=== PATIENT | female | born 1960 | race Caucasian/White ===

== ENCOUNTER 2024-06-20 15:47 | Outpatient (CLI) | payer BC, SELFPAY ==
--- NOTE | 2024-06-20 14:05 | DI.RAD_ITS ---
Exam(s) XR KNEE LT 1V XR STANDING ALIGNMENT EXAM: XR STANDING ALIGNMENT and XR knee LT 1 V CLINICAL HISTORY: LEFT KNEE PAIN. TECHNIQUE: 2D digital imaging was performed. Five images were obtained. COMPARISON: CR XR KNEE 4 VIEW LEFT from 06/03/2023 CR XR KNEE 4 VIEW LEFT from 03/09/2024 FINDINGS: BONES: The hips are well maintained. In the right knee, there is mild narrowing of the medial femora l tibial joint space. In the left knee there is marked narrowing of the medial femoral tibial joint. There is an enthesophyte at the anterior patella. There is a small joint effusion. The ankles are well maintained.There is no significant leg length discrepancy. SOFT TISSUE: Normal. IMPRESSION: Degenerative changes seen in the knees bilaterally, left greater than right. DATA REPOSITORY: RADIATION DOSE DELIVERED:
== END 2024-06-20 15:48 | disposition home or self-care (01) ==
LOC: DIORS 15:47
PROVIDERS: Visit Provider Student in an Organized Health Care Education/Training Program
DX: M17.12 Unilateral primary osteoarthritis, left knee
CPT/HCPCS: 73560; 77073

== ENCOUNTER 2024-08-05 09:42 | Day surgery (SDC) | payer BC, SELFPAY ==
[2024-08-05] VITALS (20 sets, daily range): BP systolic 138–164; BP diastolic 60–99; PULSE 74–88; RESP 11–20; TEMP 35.9–36.6; O2SAT 92–99; BMI 36.9
--- NOTE | 2024-08-05 09:50 | W.PM.DSUDISC ---
Date of service: 08/05/24 Discharge Plan Disposition Patient Disposition: Home Condition: Good Discharge Details Reason For Visit: Left knee DJD Attending Provider: Ricki Goodman Primary Care Provider: None,None Home Meds and New Rx's Prescriptions: New celecoxib [Celebrex] 200 mg capsule 200 mg PO BID PRNQty: 60 0RF Rx Instructions: Take one tablet twice daily for pain and inflammation aspirin 81 mg tablet,delayed release (DR/EC) 81 mg PO BID 30 Days Qty: 60 0RF acetaminophen 500 mg tablet 1,000 mg PO Q8H PRN Qty: 90 0RF Rx Instructions: Take two tablets up to every 8 hours as needed for pain dexamethasone 4 mg tablet 4 mg PO DAILY Qty: 2 0RF Rx Instructions: Take one tablet once daily for two days docusate sodium [Colace] 100 mg capsule 100 mg PO BID Qty: 30 0RF gabapentin 300 mg capsule 300 mg PO QHS Qty: 14 0RF Rx Instructions: Take one tablet at bedtime oxycodone 5 mg tablet 5 mg PO Q4H PRNQty: 18 0RF Rx Instructions: Take one tablet up to every 4 hours as needed for severe postoperative pain Continued atorvastatin 10 mg tablet 10 mg PO DAILY calcium carbonate 600 mg calcium (1,500 mg) tablet 600 mg PO DAILY haloperidol 2 mg tablet 4 mg PO QHS lorazepam 0.5 mg tablet 0.5 mg PO DAILY PRN losartan 25 mg tablet 25 mg PO DAILY magnesium oxide 400 mg (241.3 mg magnesium) tablet 400 mg PO DAILY metformin 500 mg tablet 500 mg PO BID omeprazole 40 mg capsule,delayed release(DR/EC) 40 mg PO BID sertraline 100 mg tablet 100 mg PO DAILY cholecalciferol (vitamin D3) 50 mcg (2,000 unit) capsule 50 mcg PO DAILY diclofenac sodium [Voltaren Arthritis Pain] 1 % gel 2 g topical QID Rx Instructions: apply to single elbow, wrist or hand; for hand includes palm/fingers/back of hand Pain Relieving(cam-m.lew-ment) Adhesive Patch,Medicated 1 patch topical PRN Discontinued acetaminophen [Tylenol] 325 mg tablet 325 mg PO Q4H PRN Discharge Instructions Additional Instructions: Total Knee Discharge Instructions Activity: The most important activity is to walk and to work on gentle motion (both flexion and extension). You should try to take short walks a few times a day. It is important that when resting you work on keeping the knee straight. Avoid putting a pillow behind the knee as this will encourage flexion. Work on range of motion exercises as provided by Physical Therapy. - Start outpatient physical therapy within 2 weeks. - You should wear the MAVERICK hose on both legs for 2 weeks. You may remove these at night. You may also use any compression sock in place of the MAVERICK hose. - Utilize [employer] to review exercises, see videos on exercises and obtain basic information pertaining to your surgery and your recovery. Dressing: Remove the Horace wrap by 2 days after your surgery and put on the MAVERICK stocking given to you from the hospital. Keep the surgical dressing (underneath the HORACE wrap) in place for at least one week. After the first week it may be removed and replaced with light gauze and tape or nothing. The wound and dressing may get wet after 3 days but avoid soaking the dressing or otherwise it will need to be changed. Many people prefer covering the dressing with cling wrap (saran wrap) to minimize it from getting soaked. If it gets wet, just pat dry. If it starts to peel off then it will need to be changed. Medications: - You should take Tylenol and anti-inflammatory Celebrex as your primary pain control medications. If the Celebrex is too expensive or not covered, please call the office for another alternative (Advil/Ibuprofen or Naproxen/Aleve) - You have been prescribed a stronger pain medication Oxycodone for breakthrough pain, take as needed as prescribed. - You take a stomach acid reduction agent Omeprazole to help reduce stomach acid and reflux. - You have been prescribed Gabapentin to take at night for restlessness and nerve pain. - You will be taking Aspirin 81mg twice a day for DVT prevention unless instructed otherwise. - You have also been prescribed Decadron to take to control post-operative nausea and pain. You will start this tomorrow. - If you have constipation you should take Colace (which has been prescribed) or Miralax (which is available [id number]). It takes most people 3-4 days to have a bowel movement. Follow-up: 2 weeks If you have any acute concerns or questions, please do not hesitate to contact the office at [phone]. You may contact Dr. Goodman with any questions after hours through the hospital at [phone] or on his cell phone at [phone]. Stand Alone Forms: Anesthesia Discharge Inst., Navid.Nerve Block Instructions, Melody Adam ([facility]) Referrals: Ricki Goodman MD [ [facility] STAFF PHYSICIAN] - 08/18/24 1:15 pm Equipment/Supplies: Walker Activity:: Elevate Remove Dressings/Wound Care:: Do Not Remove Shower/Bathe:: Cover Diet:: As Tolerated Discharge Orders Discharge Orders: Discharge Order (Routine); Ordered 08/05/24 Ordered By: Brittaney Mcneill
[2024-08-05] MEDS: Celecoxib 200 MG CAP 400 MG PO (11:01)
[2024-08-05] MEDS: Gabapentin 300 MG CAP PO (11:01)
[2024-08-05] MEDS: Acetaminophen 500 MG TAB 1000 MG PO (11:01)
[2024-08-05] MEDS: Lactated Ringers 1,000 ML 80 ML IV (11:09)
--- NOTE | 2024-08-05 11:20 | ANES.PREOP_ITS ---
General Info Date of Service Date Performed: 08/05/24 Height: 5 ft 3.5 in Weight: 96.1 kg Body Mass Index (BMI): 36.9 Surgical Procedure: Operation Date: 08/05/24 11:25 Proposed Procedure Side Surgeon p Knee Total Arthroplasty, Cementless CR Left Ricki Goodman MD Meds Allergies and Home Medications Allergies Allergy/AdvReac Type Severity Reaction Status Date / Time house dust AdvReac Mild watery eyes Verified 08/05/24 11:00 lisinopril AdvReac Unknown Unknown Verified 08/05/24 10:48 empagliflozin (From AdvReac headaches Verified 08/05/24 10:48 Jardiance) seaonale Allergy Unknown Unknown Uncoded 08/05/24 11:00 cat hair AdvReac watery eyes Uncoded 08/05/24 10:48 Home Medication ?Medication ?Instructions ?Recorded acetaminophen 325 mg tablet 325 mg PO Q4H PRN 04/20/24 (Tylenol) atorvastatin 10 mg tablet 10 mg PO DAILY 04/20/24 calcium carbonate 600 mg PO DAILY 04/20/24 cholecalciferol (vitamin D3) 50 50 mcg PO DAILY 04/20/24 mcg (2,000 unit) capsule diclofenac sodium 1 % topical gel 2 g topical QID 04/20/24 (Voltaren Arthritis Pain) haloperidol 2 mg tablet 4 mg PO QHS 04/20/24 lorazepam 0.5 mg tablet 0.5 mg PO DAILY PRN 04/20/24 losartan 25 mg tablet 25 mg PO DAILY 04/20/24 magnesium oxide 400 mg (241.3 mg 400 mg PO DAILY 04/20/24 magnesium) tablet metformin 500 mg tablet 500 mg PO BID 04/20/24 omeprazole 40 mg capsule,delayed 40 mg PO BID 04/20/24 release sertraline 100 mg tablet 100 mg PO DAILY 04/20/24 camphor-methyl salicylate-menthol 1 patch topical PRN 08/04/24 topical patch (Pain Relieving (camphor-m.salicyl-menth) topical patch) Current Visit Medications: Current Medications Generic Name Dose Route Start Last Admin Trade Name Freq PRN Reason Stop Dose Admin Acetaminophen 1,000 mg 08/05/24 06:00 08/05/24 11:01 Acetaminophen 500 Mg Tab PO 08/05/24 23:59 1,000 mg PREOP KIANA Administration Celecoxib 400 mg 08/05/24 06:00 08/05/24 11:01 Celecoxib 200 Mg Cap PO 08/05/24 23:59 200 mg PREOP KIANA Administration Gabapentin 300 mg 08/05/24 06:00 08/05/24 11:01 Gabapentin 300 Mg Cap PO 08/05/24 23:59 300 mg PREOP KIANA Administration Hydromorphone HCl 0.5 mg 08/05/24 09:52 Hydromorphone 1 Mg/Ml Syr IVP 09/04/24 09:51 Q2H PRN PRN Ringer's Solution 1,000 mls @ 80 mls/hr 08/05/24 06:00 08/05/24 11:09 IV 08/05/24 23:59 80 mls/hr INFUSION KIANA Administration Cefazolin Sodium/Dextrose 2 gm in 50 mls @ 100 mls/hr 08/05/24 06:00 Ancef Duplex IVPB 08/05/24 23:59 PREOP KIANA Tranexamic Acid/Sodium Chloride 1,000 mg in 100 mls @ 600 mls/hr 08/05/24 06:00 IVPB 08/05/24 23:59 PREOP KIANA Cefazolin Sodium/Dextrose 1 gm in 50 mls @ 100 mls/hr 08/05/24 10:00 Ancef Duplex IVPB 08/06/24 02:29 Q8H KIANA IV Miscellaneous Supplies 1 each 08/05/24 06:00 Iv Access IV 08/05/24 23:59 DIRECTED KIANA Oxycodone HCl 0 mg 08/05/24 09:48 Oxycodone 5 Mg Tab PO 09/04/24 09:47 Q3H PRN PRN Pain Sodium Chloride 0 ml 08/05/24 06:00 Normal Saline Flush 10 Ml Syr IV 08/05/24 23:59 PRN PRN Sodium Chloride 0 ml 08/05/24 06:00 Normal Saline 10 Ml Vial IJ 08/05/24 23:59 DIRECTED PRN Sterile Water 0 ml 08/05/24 06:00 Water,Injection,Sterile 10 Ml Vial IJ 08/05/24 23:59 DIRECTED PRN PFSH Active Problems Active Problems: Problem Status Onset Code History of total left knee replacement Acute ~08/05/24 Z96.652 Lung mass Acute R91.8 Osteoarthritis of left knee Acute M17.12 Obesity Chronic E66.9 Type 2 diabetes mellitus Acute E11.9 Mixed stress and urge incontinence Acute N39.46 Irritable bowel syndrome with diarrhea Acute K58.0 GERD (gastroesophageal reflux disease) Chronic K21.9 Functional disorder of intestine Acute K59.9 Incontinence of feces with fecal urgency Acute R15.9, R15.2 Essential hypertension Acute I10 Disorder of lipid metabolism Acute E78.9 Cystocele affecting management of , antepartum Acute O34.80 Chronic schizophrenia Acute F20.9 Biliary calculus Acute K80.20 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 Nothing wrong with my heart they said, but they found 3 spots on my lung. Surgical History Surgical History H/O esophagogastroduodenoscopy History of colonoscopy History of cryosurgery for irregular cells per patient History of breast surgery Mass excision right breast, no cancerous per patient History of cholecystectomy Tobacco Smoking/Tobacco Use Status: Never Alcohol Alcohol Intake: never Substance Use Substance use type: does not use Vital Signs and Lab Results Vital Signs Most Recent Vital Signs in EMR: Most Recent Vital Signs Temp Pulse Resp BP Pulse Ox 36.4 C L 77 16 157/74 H 95 08/05/24 10:44 08/05/24 10:44 08/05/24 10:44 08/05/24 10:44 08/05/24 10:44 Lab Results Blood Type / Crossmatch: No Data to Display Complete Blood Count: 2 No Data to Display Complete Metabolic Panel: No Data to Display Liver Function Panel: No Data to Display Coagulation Panel: No Data to Display Cardiac Panel: No Data to Display Arterial Blood Gas: No Data to Display Venous Blood Gas: No Data to Display Pancreas Panel: No Data to Display Thyroid Panel: No Data to Display Infectious Disease: No Data to Display Blood Cultures: No Data to Display Toxicology Panel: No Data to Display Anesthesia Assessment and Plan Anesthesia History Personal History: No History of Anesthesia Complications Family History: No Family History of Anesthesia Complications Exercise Tolerance Exercise Tolerance: Metabolic Equivalents>4 Pertinent Negatives Pertinent Negatives: No Symptoms of GERD Cardiac & Pulmonary Exam Cardiac Exam: Normal S1/S2 Heart Sounds Pulmonary Exam: Clear Bilateral Breath Sounds Implantable Cardiac Device Does patient have a Pacemaker or an ICD?: No Airway Exam Known Difficult Airway: No Mallampati Class: 2 Mouth Opening: Normal (> 3cm) Thyromental Distance: Greater than 3 cm Neck Range of Motion: Full ROM Neck Circumference: Thick Teeth Condition: Removable Dentures/Plates Upper and Removable Dentures/Plates Lower ASA Classification ASA Score: ASA 3 Emergency Case?: No NPO Status NPO Status: NPO Clears >2 hours, Solids >8 hours Anesthesia Plan Resuscitation Status: Full Code Anesthesia Technique: Spinal Anesthesia Airway Planned: Natural Airway Pain Management: Surgeon and patient request nerve block Monitors Used: Standard Monitors Preoperative Comments:: Chio is an pleasant 64 year old with diagnosed mental health issues. Daughter is with her for clarification and input. Plan is to attempt SAB if patient remains cooperative, otherwise will have GETA.
[2024-08-05] MEDS: ceFAZolin 2 GM/50 ML BAG IVPB (12:01)
[2024-08-05] MEDS: TRANEXAMIC ACID/SOD. CHL. 1,000 MG/100 ML BAG 600 MG IVPB (12:11)
--- NOTE | 2024-08-05 12:21 | W.ANESNERVE ---
Nerve Block Single Injection Procedure Date and Time Date Performed: 08/05/24 Procedure Start: 11:33 Location Where Procedure Performed Procedure Location: Day Surgery Unit Reason Performed: Postoperative Analgesia Requesting Provider: Ricki Goodman Timeout Performed Timeout Performed: Yes Monitoring Used ECG, Blood Pressure, SpO2 and See EMR for corresponding vital signs Sterility Sterility: Hand Hygiene, Surgical Cap, Surgical Mask, Sterile Gloves, Eye Protection and Chlorhexidine Sedation Given During Procedure Sedation Given (Indicate Dose Given): Versed IV Dose:: 3mg IVP Patient Mental Status Patient Mental Status: Sedate with meaningful communication Nerve Block 1st Nerve Block: Laterality: Left Block Type: Adductor Canal Ultrasound Image Saved?: Yes Needle / Catheter Used: 120mm SonoPlex II Local Anesthetic Bolus (Indicate Dose Given): Lidocaine used for local infiltration of skin and Ropivacaine 0.5% Dose:: 25cc/5% (125mcg) Additives (Indicate Dose Given): Epinephrine to make 1:200,000 (5mcg/ml) Dose:: 125mcg and Decadron Dose:: 10mg PF Ultrasound: Sterile probe cover and gel used Nerve Stimulator: Not Used Paresthesia: None Procedure Tolerated: No Complications and Patient tolerated well Procedure Outcome: Successful Performed By: Santino Ojeda
--- NOTE | 2024-08-05 13:44 | ROE_ITS ---
Operative Note Operative Note PRE-OP DIAGNOSIS: Left Knee Osteoarthritis POST-OP DIAGNOSIS: same PROCEDURE: Left Total Knee Replacement SURGEON: Ricki Goodman MAIL CARRIER TECHNICIAN: Graciela Arora ANESTHESIA TYPE: Spinal Refer to Anesthesia Record ESTIMATED BLOOD LOSS: 75 PATHOLOGY: none sent TOURNIQUET TIME: 0 COMPLICATIONS: None Patient was transported to: PACU Patient's condition: stable Implants: 1. Depuy Attune Cementless Cruciate Retaining Femoral Component, Size 5 2. Depuy Attune Cementless Fixed Bearing Tibial Component, Size 4 3. Depuy Attune 5x6mm CR/FB Poly 4. Depuy Attune Patellar Component, Size 35 Indications: I have seen Chio in clinic for symptoms of knee arthritis, confirmed with radiographic findings. She has exhausted nonoperative methods and was having significant limitations in daily function and desired better function and less pain. I discussed the technical details of a knee replacement. I explained the risks of the procedure to include, but not limited to, bleeding, infection, pain, stiffness, fracture, damage to nerves and vessels, damage to muscles and tendons, loosening, need for repeat procedure, blood clot and cardiopulmonary demise. Despite these risks, Chio elected to proceed. Findings: There was notable arthritic change of the medial compartment as well as a focal cartlage defect of the lateral tibia. Procedure Description: Chio was greeted in the preoperative holding area where the correct side was identified and marked. The consent was reviewed with the patient and signed. The history and physical was updated. All questions were answered. Preoperative medications were administered: Acetaminophen 1000mg, Celebrex 400mg, and Gabapentin 300mg. An adductor canal block was then administered by the anesthesia team in the [facility]. Chio was taken back to the operating room. A spinal anesthestic was then administered. The patient was placed into the supine position on the operating room table. Posts were placed for positioning during the procedure. All bony prominences were well padded. Prophylactic antibiotics in the form of Cefazolin were administered. 1g of Tranxemic Acid was given intravenously within 30 minutes of incision. The left leg was then prepped with Chloraprep and draped in a standard fashion with impervious stockinette. A second prep with Chloraprep was performed prior to application of Iodine impregnated skin protection. A timeout to confirm correct identity, side and site, procedure, allergies, anesthesia, and medical concerns was performed. With the knee in some flexion, a midline incision was made overlying the knee. Full thickness skin flaps were raised once the extensor mechanism was encountered. These were raised medially and laterally. Any bleeding was controlled with electrocautery. Once the extensor mechanism was fully exposed, a medial parapatellar arthrotomy was performed in a flexed position. All bleeding from the arthrotomy and the geniculate arteries was coagulated. A medial subperiosteal peel was performed with electrocautery to the midcoronal plane. The fat pad was removed while keeping the patellar tendon protected. The anterior distal femur synovium was removed for later visualization. The ACL and PCL were resected and the anterior horn of the lateral meniscus was transected. The knee was then flexed with the patella everted. Large osteophytes from the tibia were removed. Large osteophytes from the femur were removed. Using a step drill, and based on preoperative templating, the femoral canal was entered. This was done with a step drill without any difficulty. The int ramedullary distal femoral cut guide was inserted, set to a 4 degree valgus cut and 9mm cut thickness. The distal femoral cut guide was then held in position and pinned. With the soft tissues protected, the distal cut was performed. This was passed over a few times to ensure a planar cut. I then turned attention to the tibia. The extramedullary guide was placed onto the leg. The distal aspect was slid medial to adjust for position of center of ankle and stay in line with shaft of the tibia. Approximately 3-5 degrees of posterior slope was kept in the proximal cutting guide. The center of the guide was aligned with the PCL. The stylus was used to assess cut thickness. The medial side, most involved side, was set for a 5mm cut. This was then held in position and pinned into place with 2 additional pins and a cross pin for stability. The medial and lateral collateral ligaments were protected and the cut was performed. With this completed, it was assessed and noted to be of appropriate dimensions. The guide was removed. A spacer block was inserted and the knee was brought into extension. The 6mm spacer block provided full extension, without hyperextension and with stability of both the medial and lateral collateral ligaments was assessed. The pins from the femur and the tibia were then removed. The distal femur was then sized. The anterior stylus was placed onto the lateral ridge of the anterior femur. This indicated a size 5 femur. The external rotation of the guide was adjusted to 3 degrees to match the epicondylar axis, perpendicular to Suyapa?s line. The 4-in-1 cutting guide was the placed. The posterior medial femur cut was evaluated and appeared of good thickness. The spacer block was inserted underneath the cutting guide and stability was confirmed in 90 degrees of flexion. An viv wing was used to confirm appropriate position of the anterior cut to avoid notching. This cutting guide was ensured to be flush on the cut surface and then pinned into place with headed pins. While protecting the soft tissues, quad tendon, and collateral ligaments, the anterior and posterior cuts were performed with a saw. The central two pins were removed and the posterior and anterior chamfers were cut next. The notch-cutting guide was placed. This was pinned to lateralize the femoral component as much as possible while keeping it flush on the cut surface. This was then pinned into position. A reciprocating saw was used to make the notch cut. A rasp smoothed the cut surfaces. The medial and lateral menisci were removed. A trial femoral component was then inserted, impacted down to the cut surfaces, and the lug holes were drilled. A provisional trial tibial component was placed and the knee was brought through range of motion. There was noted to be excellent extension and flexion. There was no significant instability. The patella was tracking without thumbs. A size 6mm polyethylene component provided the best range of motion and stability with less than 2mm gapping with medial and lateral stress and full extension without significant hyperextension. The tibial cut surface was fully exposed. The tibia was then sized as a 4. The tibia had been previously marked during trialing to correspond to the center of the tibial component to help with rotation. The trial was aligned to this joce, approximately rotated to the medial 1/3rd of the tibial tubercle. The trial was pinned into place. The tibia was prepared with a reamer and a keel punch and lug holes. The knee was then brought into extension and the patella was measured as 24mm. Using the patellar clamp and cut guide, this was resected to a flat surface with at least 13mm of thickness remaining. The size 35 patella fit the best. This was oriented and then clamped into position. The lugs were drilled. The trial components were removed. The final components were opened on the back table. The periosteal and capsular tissues, especially posteriorly, around the knee were then systematically injected with a periarticular cocktail consisting of 246mg of Ropivacaine, 0.5mg of Epinephrine, 0.08mg of Clonidine, and 30mg of Ketorolac, diluted to 100cc. On the back table, with the implants opened, the cement was mixed. One batch of high viscosity cement was prepared with vacuum assistance. After the cement was ready a small amount was placed on the cut surface of the patella and the patellar button was clamped into position and held. While the cement was hardening, the cementless knee components were placed. Starting with the tibial component, the tibia was subluxed anteriorly and the lug holes of the component were lined up. The tibia was then impacted with an impactor and mallet until the tibial component was in contact with the tibia. The final polyethylene component was inserted. Then, the femoral component was inserted. The lug holes were aligned and the component was impacted into position. The knee was irrigated with Surgiphor Betadine solution. This was allowed to sit in the knee for 3 minutes and then it was irrigated out with saline. After the cement had finally cured, approximately 15min, the clamp was removed from the patella and the knee was taken through range of motion. The patella was tracking with a no-thumbs technique. The capsule was then reapproximated with a No. 1 Vicryl at multiple locations. The capsule was finally closed with a No. 2 Stratafix, barbed suture. The second dosing of 1g TXA was started. Deep tissues were then reapproximated with 0 Vicryl and 2-0 Vicryl. The skin was closed with a running 3-0 Monocryl in a subcuticular fashion. This was reinforced with skin glue. A Mepilex silver dressing was applied along with a [id number] AMY wrap. A CryoCuff was applied. Chio was transferred to the hospital bed without difficulty an suffering no apparent complication. Chio has a good prognosis. Physical therapy will start today and without restrictions, weight-bearing as tolerated. Aspirin 81mg BID will be used for DVT prophylaxis. Date of Procedure: 08/05/24
--- NOTE | 2024-08-05 14:20 | W.ANESPOSTOP ---
Postoperative Evaluation Date, Time and Location Date Performed: 08/05/24 Time Performed: 14:21 Patient Location: PACU Vital Signs Most Recent Imported Vital Signs: Most Recent Vital Signs Temp Pulse Resp BP Pulse Ox 36.4 C L 74 11 L 139/67 96 08/05/24 14:16 08/05/24 14:16 08/05/24 14:16 08/05/24 14:16 08/05/24 14:16 Pain Score Most Recent Pain Score: Most Recent Pain Score Pain Level 0 08/05/24 14:14 Assessment Mental Status: Awake (Alert & Oriented to Patient Baseline) Airway and Respiratory Function: Patent airway with normal (patient baseline) respiratory exam Cardiovascular Function: Hemodynamically Stable Hydration Status: Adequately Hydrated Nausea & Vomiting: No Nausea or Vomiting Pain: Pt. Denies Any Pain Peripheral Nerve Block: Regional nerve block not resolved at time of post operative discharge
--- NOTE | 2024-08-05 15:02 | IN_ITS ---
PT Notes Visit Reasons: Left knee DJD Physical Therapy Day Surgery Initial Evaluation Date: 08/05/2024 Referring Doctor: ÓSCAR Weeks PT Orders: PT CONSULT: S/P Ortho Surgery Precautions: WBAT on the L LE with AD. Patient Profile/Admitting Diagnosis: Chio is a 64-year-old female with degenerative joint disease of the left knee and status post left total knee arthroplasty on postoperative day 0. PMHX: All Active Problems (Updated 06/20/24 @ 13:54 by ÓSCAR Castaneda) Osteoarthritis of left knee (Acute) Obesity (Chronic) Type 2 diabetes mellitus (Acute) Mixed stress and urge incontinence (Acute) Irritable bowel syndrome with diarrhea (Acute) GERD (gastroesophageal reflux disease) (Chronic) Functional disorder of intestine (Acute) Incontinence of feces with fecal urgency (Acute) Essential hypertension (Acute) Disorder of lipid metabolism (Acute) Cystocele affecting management of , antepartum (Acute) Chronic schizophrenia (Acute) Biliary calculus (Acute) Bile acid malabsorption syndrome (Acute) Social History/Home Situation: Lives with in a private home with 2 steps to enter with 1 rail. Daughter lives close by. Equipment Owned/DME: None Subjective: Denied headache, chest pain, and lightheadedness throughout session. Minimal pain in the left knee at rest and with weight bearing. Anxious at the start but with encouragement was able to complete task with no problems. Objective: General Observation: AMY wraps to left LE. TEDS to R LE. Daughter Patricia present in room. Mental Status: ANO x 4 Pain: 2/10 in the L knee ROM: Right Lower Extremity: Hip flexion WFL. Hip abduction WFL. Knee flexion WFL. Ankle dorsiflexion WFL. Ankle plantarflexion WFL. Left Lower Extremity: Hip flexion WFL. Hip abduction WFL. Knee flexion 10 degrees to 100 degrees. Knee extension -10 degrees. Ankle dorsiflexion WFL. Ankle plantarflexion WFL. Strength: Right Lower Extremity: Hip flexors 5/5. Hip abductors 5/5. Knee flexors 5/5. Knee extensors 5/5. Ankle dorsiflexors 5/5. Ankle plantarflexors 5/5. Left Lower Extremity:Hip flexors 4/5. Hip abductors 4/5. Knee flexors 3-/5. Knee extensors 3-/5. Ankle dorsiflexors 5/5. Ankle plantarflexors 5/5. Sensation: Intact as to pain and light pressure in bilateral lower extremities Bed Mobility/Transfers: Minimal cueing provided for use of B hands as needed for support, movement sequence, AD management, and posture to reduce fall risk and minimize pain report Supine to sit stand by assist Sit to stand contact guard assist with FWW Stand to sit stand by assist Bed to chair stand by assist Gait: Facilitate safe and correct performance of level surface ambulation covering a distance of 150 feet using front wheeled walker with contact-guard assist and minimal verbal cueing for AD management, weight distribution and limb movement sequence, and posture to minimize pain reported reduce fall risk. No LOB. No SOB. No increase in pain in the left knee. Stairs: Guided patient with safe and correct negotiation of 3 x 4 inch steps and 2 x 6 inch steps while holding onto bilateral rails with step to gait pattern with minimal verbal cueing provided for limb movement sequence, hand placement, and posture to minimize pain report and reduce fall risk. Balance: Static Sitting: Normal Dynamic Sitting: Normal Static Standing: Fair Dynamic Standing: Fair Special Tests: Mobility Limitations Standardized Measure [facility] AM-PAC 6 clicks Basic Mobility Inpatient Short Form: Raw Score: 21 CMS Score: 29% deficit Informed Consent/Education: Patient instructed in purpose of PT consult. Packet containing TKA Exercise protocol has been given to patient. Education and training on initial set of exercises that can be done at home have been completed with patient. Trained patient with correct performance of exercises below to maximize motor control, joint flexibility, soft tissue extensibility of the L knee musculature: Access Code: [email or web address] URL: [email or web address] Date: 08/05/2024 Prepared by: Sarah Lopez Exercises - Supine Quad Set - 1 x daily - 7 x weekly - 1 sets - 10 reps - 5 hold - Supine Heel Slide - 1 x daily - 7 x weekly - 1 sets - 10 reps - 5 hold - Supine Ankle Pumps - 1 x daily - 7 x weekly - 1 sets - 10 reps - 5 hold - Small Range Straight Leg Raise - 1 x daily - 7 x weekly - 1 sets - 10 reps - 5 hold - Seated March - 1 x daily - 7 x weekly - 1 sets - 10 reps - 5 hold Assessment: Patient requires the use of a front wheeled walker for mobility ADL performance to maximize independence and reduce fall risk. Patient presents with clinical signs and symptoms consistent with current/admitting diagnoses that have resulted to mobility limitations, gait instability, generalized weakness, and impairment of motor control as demonstrated by the following impairment level findings: 1. Decreased strength to left knee major muscle groups 2. Impaired standing balance 3. Limitation of joint range of motion in left knee Impairments are contributing to the following functional limitations: 1. Inability to safely ambulate without assistive device 2. Increase completion time for mobility ADL performance 3. Increased fall risk Patient is assessed as a 57650 moderate complexity based on the following: History: 64-year-old female with impairment level findings, functional limitations, and past medical history as indicated above Examination: Demonstrable impairment in strength, balance, and mobility level with underlying impairments and functional limitations as documented above Presentation: Evolving Decision Makin moderate complexity Goals: N/A. PT evaluation and 1-2 treatment sessions only for functional mobility training using recommended AD and for HEP instruction. Plan of Care/Treatment Plan: N/A. PT evaluation and 1-2 treatment session only for functional mobility dai messi using recommended AD and for HEP instruction. DISCHARGE RECOMMENDATIONS: Home when medically cleared by orthopedic surgeon. Recommend outpatient PT services in order to optimize functional mobility outcomes and facilitate return to independent community ambulation without an assistive device. TREATMENT CODE/TIME: 92757 x 20 minutes for 1 unit, 42228 x 15 minutes for 1 unit (15:02?15:37). Thank you for the opportunity to participate in the care of this patient. Sarah Lopez PT, DPT, CLT [facility] [place], [place]
== END 2024-08-05 16:25 | disposition home or self-care (01) ==
PROVIDERS: Visit Provider Student in an Organized Health Care Education/Training Program
PROC: (CPT 27447; principal; 2024-08-05 11:15)
DX: M17.12 Unilateral primary osteoarthritis, left knee (principal); M25.562 Pain in left knee; G89.18 Other acute postprocedural pain; E11.9 Type 2 diabetes mellitus without complications; I10 Essential (primary) hypertension; E78.5 Hyperlipidemia, unspecified; E66.9 Obesity, unspecified; Z68.36 Body mass index [BMI] 36.0-36.9, adult
CPT/HCPCS: 27447; 64447; 97162; 97530; C1776; J0171; J0690; J1100; J2250; J2371; J2401; J2405; J2704

== ENCOUNTER 2024-08-19 11:14 | Outpatient (CLI) | payer BC, SELFPAY ==
--- NOTE | 2024-08-19 08:45 | DI.RAD_ITS ---
Exam(s) XR KNEE LT 1V XR STANDING ALIGNMENT EXAM: XR STANDING ALIGNMENT and XR knee LT 1 V CLINICAL HISTORY: 1st post op S/P L TKA. TECHNIQUE: 2D digital imaging was performed. Five images were obtained. COMPARISON: CR XR STANDING ALIGNMENT from 06/20/2024 CR XR KNEE LT 1V from 06/20/2024 FINDINGS: BONES: The hips are well maintained. In the right knee, there is mild narrowing of the medial femora l tibial joint. In the left knee, there is a left total knee arthroplasty. The orthopedic hardware appears in good position. No suspicious lucencies are seen around the hardware. The ankles are well maintained.The right lower extremity is 1 cm longer than the left lower extremity. SOFT TISSUE: Normal. IMPRESSION: Left total knee arthroplasty. DATA REPOSITORY: RADIATION DOSE DELIVERED:
== END 2024-08-19 11:15 | disposition home or self-care (01) ==
LOC: DIORS 11:15
PROVIDERS: Visit Provider Physician Assistant
DX: Z96.652 Presence of left artificial knee joint (principal); Z47.1 Aftercare following joint replacement surgery
CPT/HCPCS: 73560; 77073

== ENCOUNTER 2025-05-01 07:57 | Outpatient (CLI) | payer BC, SELFPAY ==
--- NOTE | 2025-05-02 12:43 | TELEFU_ITS ---
Date of service: 05/01/25 Time of Service: 14:00 Nutrition Note NOTE: Chio in for nutrition visit - wants to better manage her glucose. Last A1c was 6.0%. Ordered for metformin 500mg BID at home. Wears Zully CGM sensor. Says she was told by provider she should avoid caffeine but doesn't want to give up her coffee. Let he know it was most likely due to her concerns with urinary incontinence and can choose decafe if that works. Denies skipping meals - will often have 3 meals and snack frequency depends on blood sugar. States disabled since 1996 and works - often out the door by 2-3am and not back until 5 pm some evenings. has some GI sensitivities with IBS-D ,functional disorder of intestine. Does not exercise. goes [facility] - fried mushrroms yesterday for lunch...wanted to know if this was healthy. I asked how often she know of any fried food choice to have a reputation for being healthy? We reviewed having a eating pattern of foods that are close to the tree, morales, field, animal that it came from and avoid extensive processing. We reviewed a couple handouts, reviewing CHO choices/serving sizes and also pointed out the nutritional differences in a serving of refined carbs vs a serving of unrefined carbs both being ~15g carbs but behaving very differently in the body. Suggested tips such as making sure grain products are at least 3g fiber per serving (she shared she buys wheat bread and we went over how this can be deceiving). We discussed getting lean protein, limiting added sugar and meeting protein needs and including plant protein for fiber content. Follow up planned for 06/05 to see you the above is going Time Spent in Nutritional Counseling and Treatment: 40 min
== END 2025-05-01 07:58 | disposition home or self-care (01) ==
LOC: DS 07:58
PROVIDERS: PCP Nurse Practitioner Family; Visit Provider Dietitian, Registered
DX: E11.9 Type 2 diabetes mellitus without complications (principal)
CPT/HCPCS: 00123; 97802

== ENCOUNTER 2025-05-25 15:59 | Outpatient (CLI) | payer BC, SELFPAY ==
--- NOTE | 2025-05-25 14:45 | DI.RAD_ITS ---
Exam(s) XR KNEE LT 2V AP,LAT EXAM: XR KNEE LT 2V AP,LAT INDICATION: LEFT KNEE PAIN. COMPARISON: CR XR KNEE LT 1V from 08/19/2024 CR XR STANDING ALIGNMENT from 08/19/2024 TECHNIQUE: 2D digital imaging was performed. Two views. FINDINGS: There is stable alignment of the total knee prosthesis. There are no abnormal surrounding bony lucencies. A joint effusion remains present. DATA REPOSITORY: RADIATION DOSE DELIVERED:
== END 2025-05-25 16:00 | disposition home or self-care (01) ==
LOC: DIORS 15:59
PROVIDERS: PCP Nurse Practitioner Family; Visit Provider Student in an Organized Health Care Education/Training Program
DX: Z96.652 Presence of left artificial knee joint (principal)
CPT/HCPCS: 73560

== ENCOUNTER 2025-07-20 08:43 | Emergency (ER) | payer BC, SELFPAY ==
[2025-07-20 08:49] VITALS: BP 193/75; PULSE 77; RESP 16; TEMP 36.3; O2SAT 97
--- NOTE | 2025-07-20 09:05 | W.ED.GENAD ---
Discharge Plan Disposition Patient Disposition: Home Condition: Stable Discharge Details Clinical Impression: Acute lumbar back pain Primary Care Provider: Estefanía Fox ED Provider: Tadeo Pozo Home Meds and New Rx's Prescriptions: New diclofenac sodium 1 % gel 2 g topical TID Qty: 50 0RF Rx Instructions: apply to affected area 3 times per day methocarbamol 750 mg tablet 750 mg PO QID 7 Days Qty: 28 0RF Continued acetaminophen 500 mg tablet 1,000 mg PO Q8H PRN Qty: 90 0RF Rx Instructions: Take two tablets up to every 8 hours as needed for pain mirabegron [Myrbetriq] 50 mg tablet extended release 24 hr 50 mg PO DAILY celecoxib 200 mg capsule 200 mg PO BID PRN (Reason: pain) Qty: 60 0RF atorvastatin 10 mg tablet 10 mg PO DAILY calcium carbonate 600 mg calcium (1,500 mg) tablet 600 mg PO DAILY haloperidol 2 mg tablet 4 mg PO QHS lorazepam 0.5 mg tablet 0.5 mg PO DAILY PRN losartan 25 mg tablet 25 mg PO DAILY magnesium oxide 400 mg (241.3 mg magnesium) tablet 400 mg PO DAILY metformin 500 mg tablet 500 mg PO BID omeprazole 40 mg capsule,delayed release(DR/EC) 40 mg PO BID sertraline 100 mg tablet 100 mg PO DAILY cholecalciferol (vitamin D3) 50 mcg (2,000 unit) capsule 50 mcg PO DAILY diclofenac sodium [Voltaren Arthritis Pain] 1 % gel 2 g topical QID Rx Instructions: apply to single elbow, wrist or hand; for hand includes palm/fingers/back of hand Gemtesa 75 mg tablet 75 mg PO DAILY Patient Comments: TAKE 1 TABLET BY MOUTH ONCE DAILY Pain Relieving(cam-m.lew-ment) Adhesive Patch,Medicated 1 patch topical PRN Discharge Instructions Instructions: Diclofenac (Topical), Methocarbamol, Low Back Pain ED Additional Instructions: You were seen in the emergency department for your lower back pain in the setting of history of back arthritis, this occurred while sleeping 2 nights ago and you have suffered no trauma we have a very low suspicion for any fracture. Due to this we are going to treat you empirically for perhaps an exacerbation of your back arthritis versus small disc bulge with normal neurovascular examination. Please take 1000 mg of Tylenol 3 times per day or every 8 hours, take your Celebrex daily for anti-inflammatory effect, take the prescribed methocarbamol for muscle relaxation, apply the topical diclofenac gel 2-3 times per day to area of pain during the daytime hours, apply ehwp-qem-tzgfnfe lidocaine patch to your lower back each night, purchase an dkgu-txc-ohafwhn back brace, try to stay in good posture, ask your physical therapist to start working on your lumbar back pain, if you do not improve in 1 to 2 weeks ask your primary care provider for an MRI of the lumbar spine without contrast. Please return to the emergency department for any urinary retention, bowel incontinence, weakness or neurologic abnormalities of the lower extremities. Stand Alone Forms: Portal Information Referrals: Estefanía Fox [Primary Care Provider, Medicine] Discharge Data Discharge Date/Time-TO BE ENTERED AT DEPARTURE: 07/20/25 09:58 HPI General Date/Time Provider Initiated Documentation: 07/20/25 08:52. HPI Narrative: 65 year-old female presents to ED today by POV/ambulating with a chief complaint of mid-lower back pain, noticed upon awakening with onset 2 days ago. Patient denies any trauma and has known arthritis and cartilage problems in her lower back. Quality described as sharp pains, worse with lifting her legs, no radiation to urinary retention, bowel incontinence, weakness of legs, numbness of legs, numbness of genitals, fever, abdominal pain. Severity is described as moderate. Palliating factors include subtherapeutic Tylenol/ibuprofen regimen. Provoking factors include certain movements. Events leading up to the incident/Associated Symptoms: Patient already seens physical therapy. Patient not anticoagulated. Related Data Home Medications ?Medication ?Instructions ?Recorded ?Confirmed atorvastatin 10 mg tablet 10 mg PO DAILY 04/20/24 07/20/25 calcium carbonate 600 mg PO DAILY 04/20/24 07/20/25 cholecalciferol (vitamin D3) 50 50 mcg PO DAILY 04/20/24 07/20/25 mcg (2,000 unit) capsule diclofenac sodium 1 % topical gel 2 g topical QID 04/20/24 07/20/25 (Voltaren Arthritis Pain) haloperidol 2 mg tablet 4 mg PO QHS 04/20/24 07/20/25 lorazepam 0.5 mg tablet 0.5 mg PO DAILY PRN 04/20/24 07/20/25 losartan 25 mg tablet 25 mg PO DAILY 04/20/24 07/20/25 magnesium oxide 400 mg (241.3 mg 400 mg PO DAILY 04/20/24 07/20/25 magnesium) tablet metformin 500 mg tablet 500 mg PO BID 04/20/24 07/20/25 omeprazole 40 mg capsule,delayed 40 mg PO BID 04/20/24 07/20/25 release sertraline 100 mg tablet 100 mg PO DAILY 04/20/24 07/20/25 camphor-methyl salicylate-menthol 1 patch topical PRN 08/04/24 07/20/25 topical patch (Pain Relieving (camphor-m.salicyl-menth) topical patch) acetaminophen 500 mg tablet 1,000 mg (2 x 500 mg) PO Q8H PRN 10/10/24 07/20/25 pain #90 tabs celecoxib 200 mg capsule 200 mg PO BID PRN pain #60 caps 05/25/25 07/20/25 mirabegron 50 mg tablet,extended 50 mg PO DAILY 05/25/25 07/20/25 release 24 hr (Myrbetriq) diclofenac sodium 1 % topical gel 2 g topical TID #50 grams 07/20/25 methocarbamol 750 mg tablet 750 mg PO QID 7 days #28 tabs 07/20/25 vibegron 75 mg tablet (Gemtesa) 75 mg PO DAILY 07/20/25 07/20/25 Previous Rx's ?Medication ?Instructions ?Recorded acetaminophen 500 mg tablet 1,000 mg (2 x 500 mg) PO Q8H PRN 10/10/24 pain #90 tabs celecoxib 200 mg capsule 200 mg PO BID PRN pain #60 caps 05/25/25 diclofenac sodium 1 % topical gel 2 g topical TID #50 grams 07/20/25 methocarbamol 750 mg tablet 750 mg PO QID 7 days #28 tabs 07/20/25 Allergies Allergy/AdvReac Type Severity Reaction Status Date / Time house dust AdvReac Mild watery eyes Verified 07/20/25 08:53 lisinopril AdvReac Unknown Unknown Verified 07/20/25 08:53 empagliflozin (From AdvReac headaches Verified 07/20/25 08:53 Jardiance) seaonale Allergy Unknown Unknown Uncoded 07/20/25 08:53 cat hair AdvReac watery eyes Uncoded 07/20/25 08:53 General Stated Complaint: Nk/Back Pain COSME: 4 Review of Systems All systems reviewed & are unremarkable except as noted in HPI and below Exam Narrative Exam Narrative: GENERAL APPEARANCE: Well-nourished, non-toxic, awake and alert, atraumatic, no acute distress. SKIN: Warm, pink, dry, intact, without rashes/lesions/ulcerations. HEAD: Normocephalic, atraumatic, normal hair distribution for gender/age. EYES: Normal conjunctiva, no exudates on lids/lashes. ENT: Nares patent, no circumoral cyanosis, no facial swelling NECK: Supple, trachea midline, painless cervical ROM. LUNGS/CHEST: Non-labored respirations, normal A/P diameter, symmetrical expansion, no chest wall deformity HEART (CV/PV): No peripheral edema, no JVD. ABDOMEN: Soft, non-distended, no guarding. MSK: Normal ROM, no swelling/deformity to bilateral UEs or LEs, moving all extremities without weakness, no cyanosis, spine midline without tenderness, normal curvature, no crepitus/stepoffs, NV intact bilat LEs NEURO: Mental Status AAOx4 - alert to person, place, time, events No facial droop, no forehead involvement. Motor: No focal weakness - strength 5/5 in bilateral UEs and LEs, proximal and distal, symmetric. Sensory: sensation intact to light touch globally. Gait normal: patient ambulated without ataxia into ED room. PSYCH: euthymic, cooperative, pleasant, appropriate speech Course Vital Signs Vital signs: Vital Signs Temperature 36.3 C L 07/20/25 08:49 Pulse 77 07/20/25 08:49 Respiratory Rate 16 07/20/25 08:49 Blood Pressure 193/75 H 07/20/25 08:49 Pulse Oximetry 97 07/20/25 08:49 Temperature 36.3 C L 07/20/25 08:49 Temperature Source Tympanic 07/20/25 08:49 Pulse 77 07/20/25 08:49 Respiratory Rate 16 07/20/25 08:49 Blood Pressure 193/75 H 07/20/25 08:49 Blood Pressure Position Sitting 07/20/25 08:49 Pulse Oximetry 97 07/20/25 08:49 Oxygen Delivery Method Room Air 07/20/25 08:49 Oxygen Flow Rate 0 07/20/25 08:49 Pain Level 5 07/20/25 08:49 Medical Decision Making This dictation utilizes [id number] dictation software and may contain unedited grammatical errors. 65 year-old female presents to ED today by POV/ambulating with a chief complaint of mid-lower back pain, noticed upon awakening with onset 2 days ago. Patient denies any trauma and has known arthritis and cartilage problems in her lower back. Quality described as sharp pains, worse with lifting her legs, no radiation to urinary retention, bowel incontinence, weakness of legs, numbness of legs, numbness of genitals, fever, abdominal pain. Severity is described as moderate. Palliating factors include subtherapeutic Tylenol/ibuprofen regimen. Provoking factors include certain movements. Events leading up to the incident/Associated Symptoms: Patient already seens physical therapy. Patients' medical history: Arthritis, T2DM, GERD, hypertension, obesity. Family and social history: noncontributory. Pertinent exam findings / vital signs include diffuse lumbar paraspinal tenderness without crepitus or step-off, strength 5/5 in bilateral lower extremities, no saddle anesthesia, no sensory deficits. Differential / pathologies of concern include lumbar radicular pain, disc bulge, osteoarthritis of lumbar spine, muscle spasm. Diagnostic studies of: - None, patient has atraumatic onset and has been managing at home for 2 days, has adequate follow-up with physical therapy. Interventions of: - 1 g p.o. Tylenol, Lidoderm patch, 10 mg p.o. Toradol, 750 mg p.o. methocarbamol. ED Course/Assessment/Plan: 65-year-old female with known chronic back pain history presents after possibly sleeping on her back wrong with back pain for 2 days without neurovascular abnormality or signs/symptoms of cauda equina, counseled her on the need to adequately treat with Tylenol and anti-inflammatories recommend Voltaren gel Lidoderm patches provided methocarbamol by prescription, needs to learn certain lower back exercises at physical therapy which she has follow-up this week, counseled that if she is not improving in a few days that she would need imaging but this could be done as an outpatient, strict return criteria for any bowel or urinary changes, severe increase in back pain with fever, weakness to lower extremity. Findings not consistent with cauda equina, JAN, fracture/trauma. Disposition of Acute Lumbar Back Pain. Patient verbalized understanding of the plan and return to ED criteria and engaged in shared decision making. Medical Records Medical records reviewed: Yes I reviewed the patient's medical records. PFSH All Active Problems (Updated 07/20/25 @ 09:07 by ÓSCAR Krause) Acute lumbar back pain (Acute) Painful total knee replacement, left (Acute) Popliteus tendinitis of left lower extremity (Acute) History of total left knee replacement (Acute 08/05/24) Lung mass (Acute) Osteoarthritis of left knee (Acute) Obesity (Chronic) Type 2 diabetes mellitus (Acute) Mixed stress and urge incontinence (Acute) Irritable bowel syndrome with diarrhea (Acute) GERD (gastroesophageal reflux disease) (Chronic) Functional disorder of intestine (Acute) Incontinence of feces with fecal urgency (Acute) Essential hypertension (Acute) Disorder of lipid metabolism (Acute) Cystocele affecting management of , antepartum (Acute) Chronic schizophrenia (Acute) Biliary calculus (Acute) Bile acid malabsorption syndrome (Acute) Surgical History H/O esophagogastroduodenoscopy History of colonoscopy History of cryosurgery for irregular cells per patient History of breast surgery Mass excision right breast, no cancerous per patient History of cholecystectomy Social History Smoking/Tobacco Use Status: Never Smoking risk assessment performed?: Yes Alcohol Intake: never Substance use type: does not use Housing: house Do you feel safe at home: Yes Do you feel safe in your relationship?: Yes
[2025-07-20] MEDS: Acetaminophen 500 MG TAB 1000 MG PO (09:23)
[2025-07-20] MEDS: Ketorolac 10 MG TAB PO (09:23)
[2025-07-20] MEDS: Lidocaine 5% Patch 1 PATCH TP (09:24)
[2025-07-20] MEDS: Methocarbamol 750 MG TAB PO (09:24)
[2025-07-20 09:53] VITALS: BP 180/62; PULSE 72; RESP 18; O2SAT 98
== END 2025-07-20 09:58 | disposition home or self-care (01) ==
LOC: ER 09:42
PROVIDERS: Emergency Provider Physician Assistant; PCP Nurse Practitioner Family
DX: M54.50 Low back pain, unspecified (principal)
CPT/HCPCS: 99283 ×2